=== PATIENT | female | born 1995 | race Hispanic/Latino ===

== ENCOUNTER 2016-10-26 22:26 | Emergency (ER) | payer OTHER ==
[2016-10-26 22:33] VITALS: BP 124/61; PULSE 73; RESP 16; TEMP 98.6; O2SAT 99
--- NOTE | 2016-10-26 23:03 | ED PDOC ---
HPI: Psych/Substance Abuse Time Seen by Provider: 10/26/16 22:34 Chief Complaint (Nursing): Alcohol Ingestion ED Caveat: Intoxicated History Per: Patient History/Exam Limitations: intoxication Onset/Duration Of Symptoms: Unknown Current Symptoms Are (Timing): Still Present Modifying Factor(s): Alcohol Involuntary Hold By: None Additional History Per: Patient Additional Complaint(s): 21 y/o female brought in by [facility] for public intoxication. Patient was found with slurred speech and unsteady gait; on questioning she admitted to alcohol this evening. She denies any medical complaints. Past Medical History Vital Signs: Last Vital Signs Temp 98.6 F 10/26/16 22:31 Pulse 73 10/26/16 22:31 Resp 16 10/26/16 22:31 BP 124/61 10/26/16 22:31 Pulse Ox 99 10/26/16 22:31 - Medical History PMH: No Chronic Diseases - Surgical History Surgical History: No Surg Hx - Family History Family History: States: Unknown Family Hx - Social History Current smoker - smoking cessation education provided: No Alcohol: Occasional Drugs: Denies - Allergies Allergies/Adverse Reactions: Allergies Allergy/AdvReac Type Severity Reaction Status Date / Time Unobtainable Allergy Verified 10/26/16 22:31 Review of Systems Review Of Systems: ROS cannot be obtained secondary to pt's inabilty to answer questions. Physical Exam - Reviewed Nursing Documentation Reviewed: Yes Vital Signs Reviewed: Yes - Physical Exam Appears: Positive for: Non-toxic, No Acute Distress (intoxicated, alcohol on breath) Head Exam: Positive for: ATRAUMATIC, NORMAL INSPECTION, NORMOCEPHALIC Skin: Positive for: Normal Color, Warm, DRY Eye Exam: Positive for: EOMI, Normal appearance, PERRL ENT: Positive for: Normal ENT Inspection Neck: Positive for: Normal, Painless ROM Cardiovascular/Chest: Positive for: Regular Rate, Rhythm Respiratory: Positive for: CNT, Normal Breath Sounds Gastrointestinal/Abdominal: Positive for: Normal Exam, Bowel Sounds, Soft Back: Positive for: Normal Inspection Extremity: Positive for: Normal ROM Neurologic/Psych: Positive for: Alert, Oriented, Other (speech slurred) - ECG O2 Sat by Pulse Oximetry: 99 (RA) Pulse Ox Interpretation: Normal Medical Decision Making Medical Decision Making: Impression: Alcohol Intoxication Plan: - Labs 23:00: patient's parents presented to the ED and took her home. Scribe Attestation: Documented by Marlene Upton, acting as a scribe for Rod Drake MD Provider Scribe Attestation: All medical record entries made by the Scribe were at my direction and personally dictated by me. I have reviewed the chart and agree that the record accurately reflects my personal performance of the history, physical exam, medical decision making, and the department course for this patient. I have also personally directed, reviewed, and agree with the discharge instructions and disposition. Disposition - Clinical Impression Clinical Impression: Alcohol use - Disposition Disposition: Routine/Home Disposition Time: 23:00 Condition: STABLE Forms: [employer] ([place])
== END 2016-10-26 23:44 | disposition home or self-care (01) ==
LOC: H.ER 22:26
DX: F10.129 Alcohol abuse with intoxication, unspecified (principal)